=== PATIENT | female | born 1970 | race Caucasian/White ===

== ENCOUNTER 2017-02-18 22:15 | Emergency (ER) | payer OTHER ==
[~2017-02-18] VITALS: Ht 154.9 cm; Wt 68.0 kg
[~2017-02-18 22:15] MED LIST: GABA1CAP4 PO; GABA600T PO; RIZA10TA18 PO; TAPE50TA PO
[2017-02-18 22:18] VITALS: TEMP 36.5; Ht 154.9 cm; Wt 68.0 kg
--- NOTE | 2017-02-18 22:49 | EMERGENCY ROOM VISIT NOTE ---
History Report prepared by Nell: Dada Edmondson Under the Supervision of: Dr. Greg Baeza M.D. First contact with patient: 22:29 Chief Complaint: SWELLING TO EXTREMITY Stated Complaint: SWELLING,TINGLING,PAIN IN R LEG History of Present Illness The patient is a 46 year old female who presents to the Emergency Room with complaints of persistent right leg swelling for the past week. She also notes some tingling and pain to the right leg rated 8/10 in severity. She has weakness and diminished function of the right arm and leg secondary to past CVA. The patient denies any recent trauma to the leg or long trips. She does not have a history of blood clots to her knowledge. She is not on blood thinners. The patient has a brain aneurysm currently. She had one removed previously prior to her CVA. She denies any recent medication changes. Source of History: patient Onset: one week Position: leg (right) Symptom Intensity: 8/10 Quality: other (swelling) Timing: other (persistent) Associated Symptoms: + numbness (tingling) Review of Systems See HPI for pertinent positives & negatives. A total of 10 systems reviewed and were otherwise negative. Past Medical & Surgical Medical Problems: (1) Asthma (2) Brain aneurysm (3) CVA (cerebral vascular accident) Family History No pertinent family history Social History Smoking Status: Current Every Day Smoker Alcohol Use: none Drug Use: none Marital Status: Housing Status: lives with family Occupation Status: unemployed Current/Historical Medications Scheduled Gabapentin (Neurontin), 600 MG PO BID Gabapentin (Neurontin), 1,200 MG PO HS Tapentadol Hcl (Nucynta), 50 MG PO TID Zonisamide (Zonegran), 300 MG PO HS [Proair], 2 PUFF INH PRN UD Scheduled PRN Rizatriptan Benzoate (Maxalt), 10 MG PO DIRECTED PRN for Migraine Allergies Coded Allergies: Topiramate (Verified Allergy, Unknown, gets sick, 03/31/15) Uncoded Allergies: [id number] (Allergy, Unknown, gets sick, 07/31/15) Physical Exam Vital Signs Date Time Temp Pulse Resp B/P Pulse Ox O2 Delivery O2 Flow Rate FiO2 02/18/17 22:18 36.5 80 18 114/81 99 Room Air Physical Exam GENERAL: Patient is in no acute distress. HEENT: No acute trauma, normocephalic atraumatic, mucous membranes moist, no nasal congestion, no scleral icterus. NECK: No stridor, no adenopathy, no meningismus, trachea is midline. LUNGS: Clear to auscultation bilaterally, no wheeze, no rhonchi, breath sounds equal. HEART: Without murmurs gallops or rubs, regular rate and rhythm. ABDOMEN: Soft, nontender, bowel sounds positive, no hernias, no peritonitis. EXTREMITIES: Mild edema of the right lower extremity compared to the left, no cellulitis, no contusions, good capillary refill in the feet distally. NEUROLOGIC: Significant weakness of the right arm and leg consistent with previous stroke. Awake alert and oriented x 3. SKIN: No rash, no jaundice, no diaphoresis. Medical Decision & Procedures ER Provider Diagnostic Interpretation: Results and stated below per my review and radiologist interpretation: US VENOUS RLE: No signs of right lower extremity DVT. ED Course 2230: The patient was evaluated in room A10. A complete history and physical exam was performed. 2356: Reevaluated the patient. Discussed results and discharge instructions: She verbalized understanding and agreement. The patient is ready for discharge. Medical Decision Differential diagnosis includes DVT, venous insufficiency, medication reaction, cellulitis, ischemia, trauma. The patient presents with some right leg swelling. She has a history of stroke affecting her right side. She feels her right leg is heavier since the swelling has been present. She has not suffered trauma. On exam, there is no cellulitis. There is good distal arterial flow. There was some slight swelling to the right leg in comparison to the left. Right leg ultrasound does not show evidence for DVT. The patient may be suffering from venous insufficiency. Certainly, some of her medications may be partly responsible. I think she should see her doctor about her medications and about possibly obtaining MARYJO hose. For now, she was reassured there was no clot. Awxy-kea-allkmhy pain medications, elevation, avoidance of a salty diet were suggested. She was told that she should have a repeat ultrasound in a week or 2 if not improving or if worsening. Impression Primary Impression: Swelling of right lower extremity Scribe Attestation The scribe's documentation has been prepared under my direction and personally reviewed by me in its entirety. I confirm that the note above accurately reflects all work, treatment, procedures, and medical decision making performed by me. Departure Information Dispostion Home / Self-Care Referrals Sidney Coelho D.O. (PCP) Forms HOME CARE DOCUMENTATION FORM, IMPORTANT VISIT INFORMATION, WORK / SCHOOL INSTRUCTIONS Patient Instructions My [facility] Additional Instructions try to keep the leg elevated avoid salt which may make the swelling worse talk with your doctor for a recheck no clot noted today consider repeat ultrasound in 1-2 weeks if not improving
[2017-02-18] MEDS ORDERED: NRN/600 PO (22:53)
[2017-02-18] MEDS ORDERED: ZONI100C39 PO (22:54)
[2017-02-18] MEDS ORDERED: PROAIR INH (22:56)
[2017-02-19 00:05] VITALS: BP 98/57; PULSE 69; O2SAT 97
--- NOTE | 2017-02-19 07:02 | DIAGNOSTIC IMAGING REPORT ---
ULTRASOUND RIGHT LOWER EXTREMITY VENOUS CLINICAL HISTORY: Right leg swelling and pain. COMPARISON STUDY: No priors TECHNIQUE: Real-time, grayscale, and color Doppler sonography of the deep veins of the right lower extremity was performed from the inguinal crease to the calf. Compression and augmentation were utilized. FINDINGS: There is no sonographic evidence of deep venous thrombosis identified in the right lower extremity. The common femoral, superficial femoral, and popliteal veins are patent and normally compressible. The greater saphenous vein and the profunda femoris vein at the junction with the common femoral vein are clear. The visualized calf veins are patent. IMPRESSION: There is no sonographic evidence of deep venous thrombosis identified in the right lower extremity. Electronically signed by: Greg Reyes M.D. 02/19/2017 7:00 AM Dictated Date/Time: 02/19/2017 7:00 AM
== END 2017-02-19 00:05 | disposition home or self-care (01) ==
LOC: C.EDB 22:16 → C.EDA 02-19 00:05
DX: M79.89 Other specified soft tissue disorders (principal); I69.398 Other sequelae of cerebral infarction; I67.1 Cerebral aneurysm, nonruptured; J45.909 Unspecified asthma, uncomplicated; F17.200 Nicotine dependence, unspecified, uncomplicated

== ENCOUNTER 2018-01-04 17:49 | Emergency (ER) | payer OTHER ==
[~2018-01-04] VITALS: Ht 154.9 cm; Wt 71.2 kg
[~2018-01-04 17:49] MED LIST changes: -GABA1CAP4 PO; +PROAIR INH
[2018-01-04 17:58] VITALS: TEMP 36.8; Ht 154.9 cm; Wt 71.2 kg
[2018-01-04] MEDS ORDERED: OXYCODONE HCL IR 5 MG TAB (IMMEDIATE RELEASE) PO STA (18:50)
[2018-01-04] MEDS ORDERED: CYCL10TA6 PO (19:02)
[2018-01-04] MEDS ORDERED: PRED20TA PO (19:02)
--- NOTE | 2018-01-04 19:03 | EMERGENCY ROOM VISIT NOTE ---
ED Visit Note First contact with patient: 18:20 CHIEF COMPLAINT: "My back hurts" HISTORY OF PRESENT ILLNESS: This 47-year-old female patient presents to the emergency department, ambulatory, with her daughter, complaining of pain in the low back which began approximately 2 weeks ago spontaneously upon awakening. The pain was gradual in onset, is now constant and worse with movement. The patient notes the pain as sharp and a 10/10. The patient has taken Tylenol without relief of the pain. She was recently seen by [place] emergency department after being sent there by her PCP where she had a CT scan performed. She states she was told that the CT scan and urinalysis were normal, and she was prescribed prednisone to be taken 40 mg daily for 5 days. The patient states she took these medications, and is unsure when she completed the course. She states her pain has not improved, so she came here for further evaluation. She has not followed up with her primary care provider. The patient denies any loss of control of their bowel or bladder functions. There has been no leg numbness or weakness, and no change in sensation. No nausea or vomiting or abdominal pain. No chest pain or shortness of breath. The patient has not had prior back injuries. No dysuria or increased urinary frequency. REVIEW OF SYSTEMS: A 10 system review of systems was performed with positives and pertinent negatives listed in the history of present illness. All other systems were reviewed and are negative. ALLERGIES: Topamax, aspirin MEDICATIONS: Gabapentin, Maxalt, Neurontin, Zonegran PMH: CVA, brain aneurysm, migraines SOCIAL HISTORY: The patient lives locally with family. She denies drug, alcohol use. She admits to smoking cigarettes. PHYSICAL EXAM: VITALS: Vitals are noted on the nurse's note and reviewed by myself. Vital signs stable. GENERAL: This is a 47-year-old white female, in no acute distress, nondiaphoretic, well-developed well-nourished. SKIN: The skin was without rashes, erythema, edema, or bruising. Capillary refill less than 2 seconds. NECK: Supple without nuchal rigidity. No cervical spine tenderness. No paraspinous muscle tenderness. HEART: Regular rate and rhythm without murmurs gallops or rubs. LUNGS: Clear to auscultation bilaterally without wheezes, rales or rhonchi. ABDOMEN: Positive bowel sounds x 4. Normal tympanic percussion. Soft, nontender, without masses or organomegaly. Burnett sign negative. No CVA tenderness bilaterally. MUSCULOSKELETAL: No muscle atrophy, erythema, or edema noted of the back. There is no tenderness over the lumbar spinous processes. There is mild tenderness over the paraspinous muscles on the left. There is no tenderness over the thoracic spine or paraspinous muscles. There are no muscle spasms present. The patient is slow to move around with maximum tenderness with sitting from a lying position. Negative straight leg raise test. NEURO: Patient was alert and oriented to person place and time. Normal sensation to light and sharp touch. Deep tendon reflexes 2+ in the lower extremities. Dorsalis pedis pulse 2+ bilaterally. Strength 5/5 and equal in the bilateral lower extremities. EMERGENCY DEPARTMENT COURSE: The patient was seen and evaluated as above. Medical records from [facility] were obtained and reviewed. The patient was seen on December 28, 2017 for her back pain. She had a negative urinalysis and urine test performed at that time. She had a CT scan of the lumbar spine without IV contrast which showed no acute abnormality detected. There is some chronic appearing degenerative disc and bony changes most pronounced at L3-4 and L4-5 levels. The patient states her pain is exactly consistent with pain she experienced while being seen at [place]. She was encouraged at that point follow-up with her primary care provider, and has not completed this follow-up. Her pain is significantly worse on palpation and with movement, consistent with a muscular etiology. There is no radicular symptoms. The patient will be treated with a repeat course of prednisone, starting at a higher dose as well as muscle relaxers. She was given a dose of oxycodone while here in the emergency department for her symptoms. All questions were answered to the patient's satisfaction. She was encouraged to follow-up outpatient with her primary care provider and consider physical therapy referral for ongoing pain management. Discharge instructions were reviewed, the patient was discharged home in good condition. I attest that I have personally reviewed the patient's current medication list. Patient was found to have normal blood pressure on screening and does not require follow-up. Etiologies such as lumbago, sciatica, cauda equina, epidural abscess, osteomyelitis, fracture, aortic disease, metastatic disease, infection, renal colic, gastrointestinal, as well as others were entertained. DIAGNOSIS: Lumbar strain Problem List Medical Problems: (1) Asthma Status: Chronic (2) Brain aneurysm Status: Chronic (3) CVA (cerebral vascular accident) Status: Resolved Current/Historical Medications Scheduled Gabapentin (Neurontin), 600 MG PO BID Gabapentin (Neurontin), 1,200 MG PO HS Prednisone (Prednisone), 0 PO DAILY Zonisamide (Zonegran), 300 MG PO HS Scheduled PRN Albuterol Sulfate (Proair Respiclick), 2 PUFFS INH UD PRN for SOB/Wheezing Cyclobenzaprine Hcl (Flexeril), 10 MG PO TID PRN for Muscle Spasms Rizatriptan Benzoate (Maxalt), 10 MG PO UD PRN for Migraine Allergies Coded Allergies: Topiramate (Verified Allergy, Unknown, gets sick, 08/18/17) Uncoded Allergies: [id number] (Allergy, Unknown, gets sick, 07/31/15) Vital Signs Date Time Temp Pulse Resp B/P (MAP) Pulse Ox O2 Delivery O2 Flow Rate FiO2 01/04/18 19:36 68 18 117/72 99 01/04/18 17:58 36.8 84 16 142/92 99 Room Air Medications Administered Medications (Trade) Dose Ordered Sig/Yolanda Route Start Time Stop Time Status Last Admin Dose Admin Oxycodone HCl (Roxicodone Immediate Rel Tab) 5 mg NOW STAT PO 01/04/18 18:50 01/04/18 18:51 DC 01/04/18 19:31 5 MG Departure Information Impression Primary Impression: Strain of lumbar region Dispostion Home / Self-Care Condition GOOD Prescriptions Cyclobenzaprine Hcl (FLEXERIL) 10 Mg Tab 10 MG PO TID Y for Muscle Spasms, #15 TAB Prov: Renita Diehl PA-C 01/04/18 Prednisone (Prednisone) 20 Mg Tab 0 PO DAILY, #18 TAB 3 DAILY FOR 3 DAYS, THEN 2 DAILY FOR 3 DAYS, THEN 1 DAILY FOR 3 DAYS. Prov: Renita Diehl PA-C 01/04/18 Referrals No Doctor, Assigned (PCP) Patient Instructions ED Neck Back Pain General, [facility] Additional Instructions You have been treated in the Emergency Department for Back Pain. You have received pain medicine in the emergency department which impairs your ability to operate a vehicle. It is illegal for you to drive after receiving these medicines. You have been prescribed Prednisone. This is a steroid which will help decrease your inflammation, redness, and itch. Take this medicine as prescribed. Take the ENTIRE 9 day course. It is best to take steroids early in the morning as PM dosing can affect your sleeping patterns. You have been prescribed Flexeril (cyclobenzaprine) 1 tabs orally, three times per day. Do NOT exceed 30 mg (3 tabs) per day. Take your first dose at bedtime as it can make you drowsy. Always take all medications as prescribed. For pain control, you can use the following znxy-jlr-siscruo medicines (if >12 yo): Acetaminophen(Tylenol) may be used for fever or pain. Use 1000mg every six hours as needed. Avoid using more than 3000mg in a 24 hour period. If this is an acute injury, ice can be applied to the area of pain for the first 3 days to help decrease pain and inflammation. After the first 3 days, a heating pad can be used over the area for continued soothing relief. You should schedule a follow-up appointment in 2-3 days with your Primary Care Provider for further evaluation and treatment of your back pain. As discussed, you may need to consider physical therapy for ongoing management of your symptoms. Return to the Emergency Department if your current symptoms worsen despite treatment course outlined above, or if you develop any of the following symptoms : intractable pain despite aforementioned treatment course, loss of control of your bowel or bladder, numbness or tingling in your groin, or development of a fever. Problem Qualifiers Primary Impression: Strain of lumbar region Encounter type: initial encounter Qualified Codes: S39.012A - Strain of muscle, fascia and tendon of lower back, initial encounter
[2018-01-04] MEDS ORDERED: ALBU18002 INH (19:09)
[2018-01-04 19:36] VITALS: BP 117/72; PULSE 68; O2SAT 99
[2018-01-04] MEDS ORDERED: NRN/600 PO (22:53)
[2018-01-04] MEDS ORDERED: ZONI100C39 PO (22:54)
== END 2018-01-04 19:37 | disposition home or self-care (01) ==
LOC: C.EDB 17:50
DX: S39.012A Strain of muscle, fascia and tendon of lower back, initial encounter (principal); X50.9XXA Other and unspecified overexertion or strenuous movements or postures, initial encounter; J45.909 Unspecified asthma, uncomplicated; I67.1 Cerebral aneurysm, nonruptured; Z86.73 Personal history of transient ischemic attack (TIA), and cerebral infarction without residual deficits